=== PATIENT | male | born 1985 | race Asian ===

== ENCOUNTER 2017-08-02 09:26 | Emergency (ER) | payer OTHER ==
[~2017-08-02] VITALS: Ht 167.6 cm; Wt 62.6 kg
[2017-08-02 09:35] VITALS: Ht 167.6 cm; Wt 62.6 kg
[2017-08-02 11:04] VITALS: BP 126/74
== END 2017-08-02 11:04 | disposition home or self-care (01) ==
LOC: ED 09:26
DX: S63.601A Unspecified sprain of right thumb, initial encounter (principal); M25.531 Pain in right wrist; X58.XXXA Exposure to other specified factors, initial encounter; Y93.89 Activity, other specified; Y92.89 Other specified places as the place of occurrence of the external cause; Y99.8 Other external cause status